=== PATIENT | male | born 1985 | race Caucasian/White ===

== ENCOUNTER → 2021-11-26 13:14 | Outpatient (BNVA) | payer MEDICARE, SELFPAY | PROVIDERS: PCP Nurse Practitioner Family | DX: M79.674 Pain in right toe(s) (principal) | CPT/HCPCS: 73660 ==

== ENCOUNTER 2022-03-07 11:20 | Inpatient (IN) | payer MEDICARE, SELFPAY ==
[2022-03-07 11:38] VITALS: BP 138/81; PULSE 64; RESP 18; TEMP 36.7; O2SAT 96; BMI 29.5
--- NOTE | 2022-03-07 12:02 | W.ED.PSYCHS ---
HPI - Psych General: Chief Complaint: Psychiatric Symptoms Stated Complaint: MHE Time Seen by Provider: 03/07/22 11:34 PFSH ED PFSH: Medical History (Updated 03/03/22 @ 10:03 by Daly Hernández) Psychiatric care Social History Smoking and tobacco status: never smoked Course Vital Signs: Vital signs: Vital Signs Temperature 98.1 F 03/07/22 11:38 Pulse Rate 64 03/07/22 11:38 Respiratory Rate 18 03/07/22 11:38 Blood Pressure 138/81 03/07/22 11:38 Pulse Oximetry 96 03/07/22 11:38 Discharge Plan Discharge Condition: Stable Prescriptions: No Action ibuprofen 800 mg tablet 800 mg PO TID PRN (Reason: pain) 10 Days Qty: 30 0RF Coding Level of Care Code ED Hot Top Liner Helper for Jessica Armenta
--- NOTE | 2022-03-07 12:04 | W.ED.GENADLT ---
HPI - General Adult General: Chief complaint: Psychiatric Symptoms Stated complaint: MHE Time Seen by Provider: 03/07/22 11:34 History of Present Illness: HPI: [36]yo patient w/ hx of depression presenting to the emergency room for depression and suicidal ideation. Patient tells me that the suicidal ideation has gotten worse. Most recently, patient was involved in argument with his and now reports that he is feeling more depressed. On arrival, the patient is AAOx3 and cooperative with my evaluation. No focal complaints of chest pain, shortness of breath, palpitations, N/V, focal GI/ complaints. Currently denies HI. No complaints of hallucinations. Onset: acute on chronic Duration: ongoing Location: home Severity: severe Associated symptoms: Deny chest pain, dyspnea, nausea, rash, palpitations or vomiting Review of Systems Const: Denies: fever(s) or chills Eyes: Denies: change in vision ENMT: Denies: mouth pain Card: Denies: chest pain or palpitations Resp: Denies: dyspnea or non-productive cough GI: Denies: abdominal pain, nausea, vomiting or diarrhea : Denies: dysuria Musc: Denies: extremity pain Skin/Breast: Denies: rash or new lesions Neuro: Denies: weakness in extremities Psych: Reports: depression and suicidal ideation Santi/Lymph: Denies: easy bruising PFSH ED PFSH: Medical History Depression with suicidal ideation Psychiatric care Social History Smoking and tobacco status: never smoked Alcohol intake: never Physical Exam Const: COMMON NORMALS: alert HENMT: COMMON NORMALS: atraumatic HEAD & SCALP: atraumatic MOUTH: moist mucous membranes not abnormal Eye: COMMON NORMALS: EOMs intact bilaterally and conjunctivae normal CONJUNCTIVA: Yes conjunctivae normal Neck/C-Spine: COMMON NORMALS: full ROM and supple Resp: COMMON NORMALS: normal respiratory effort and clear to auscultation bilaterally AUSCULTATION: clear to auscultation bilaterally Cardio: COMMON NORMALS: regular rate RATE: regular rate GI: COMMON NORMALS: Soft to palpation and non-tender PALPATION: Yes Soft to palpation Extremity: COMMON NORMALS: full ROM Neuro: SENSORIUM/ORIENTATION: Yes alert MOTOR EXAM: No Abnormal motor strength present and Other motor observations present (no focal motor deficits) Psych: COMMON NORMALS: speech normal SPEECH: Yes normal speech MOOD & AFFECT: Yes depressed mood Course Vital Signs: Vital signs: Vital Signs Temperature 98.1 F 03/10/22 11:20 Pulse Rate 53 L 03/10/22 11:20 Respiratory Rate 18 03/10/22 11:20 Blood Pressure 107/65 03/10/22 11:20 Pulse Oximetry 96 03/10/22 11:20 MDM - General Adult Medical Decision Making [36]yo patient w/ hx of depression presenting for worsening depression with SI. HDS, exam within normal limit Thoughts are linear and organized, and the patient has no AH/VH, or HI. Clinically the patient displays no overt toxidrome; they are well appearing, with low suspicion for toxic ingestion given history and exam. Symptoms unlikely 2/2 anemia, hypothyroidism, infection, or ICH. Workup: CBC, CMP, Lipase, salicylate/tylenol, serum ethanol level, UDS Lab findings: wnl [1:30pm] On reassessment, labs and workup wnl. Patient is hemodynamically stable with no acute medical complaints. Case discussed with psychiatric provider Dr. Yanes at [facility] psych inpatient with recommendation for admission Disposition: Psych Lab Data : 03/07/22 13:28 03/07/22 13:28 Discharge Plan Discharge Patient Disposition: Admitted As Inpatient Admit Provider: Michael Yanes Clinical Impression: Depression with suicidal ideation Condition: Stable Discharge Diet: Regular Discharge Activity: Resume usual activity Coding Level of Care Code ED Priming Powder Premix Blender for Chg Fwd Exam Comprehensive
[2022-03-07 13:11] VITALS: BP 135/83; PULSE 60; RESP 16; O2SAT 96
[2022-03-07 13:30] VITALS: BP 115/79; PULSE 96; O2SAT 97
[2022-03-07 14:16] LABS: Basophils % 0.6 %; Eosinophils # 0.1 10^3/uL (0.0-0.8); Hematocrit 48.5 % (42.0-52.0); Hemoglobin 16.1 g/dL (11.7-16.6); Lymphocytes # 1.6 10^3/uL (0.8-4.8); Lymphocytes % 31.7 %; Mean Corpuscular HGB Conc 33.2 g/dL (30.0-36.0); Mean Corpuscular Hemoglobin 31.3 pg (28.0-34.0); Mean Corpuscular Volume 94.2 fl (80-94); Monocytes # 0.3 10^3/uL (0.2-0.9); Monocytes % 5.9 %; Neutrophils # 3.04 10^3/uL (1.8-7.7); Neutrophils % 59.4 %; Nucleated Red Blood Cells % 0 %; Platelet Count 240 10^3/cmm (130-400); Red Blood Count 5.15 10^6/uL (4.1-5.3); Red Cell Distribution Width 12.8 % (12.1-15.1); White Blood Count 5.1 10^3/uL (4.0-10.0)
[2022-03-07 14:49] LABS: Alanine Aminotransferase 16 U/L (0-41); Albumin Level 4.5 g/dL (3.5-5.2); Alkaline Phosphatase 87 IU/L (40-130); Anion Gap 13.2 (5-19); Aspartate Amino Transferase 12 U/L (0-40); Blood Urea Nitrogen 12 mg/dL (6-20); Calcium 9.3 mg/dL (8.5-10.5); Carbon Dioxide 26 mmol/L (22-29); Chloride 100 mmol/L (98-107); Globulin 2.6 g/dL (1.3-4.6); Glomerular Filtration Rate 63.2 mL/min (90-130); Glucose 92 mg/dL (65-115); Lipase 52 U/L (13-60); Osmolality Calculated 279 mOsm/kg (285-295); Potassium 4.2 mmol/L (3.5-5.1); Sodium 135 mmol/L (136-145); Total Bilirubin 0.6 mg/dL (0.15-1.2); Total Protein 7.1 g/dL (6.6-8.7)
[2022-03-07 14:51] LABS: Acetaminophen < 5.0 ug/mL (10-30); Alcohol Level < 10 mg/dL (0-10); Salicylate < 0.3 mg/dL (3-10)
--- NOTE | 2022-03-07 15:15 | PC.NURSE ---
Report called to VANESSA Bender
[2022-03-07 17:31] VITALS: BP 137/85; PULSE 85; RESP 20; TEMP 36.9; O2SAT 97
[2022-03-07 17:35] LABS: Amphetamines Screen Urine Negative (Negative); Barbiturates Screen Urine Negative (Negative); Benzodiazepines Screen Urine Negative (Negative); Cocaine Screen Urine Negative (Negative); Opiate Screen Urine Negative (Negative); PCP Screen Urine Negative (Negative); THC Screen Urine Negative (Negative)
[2022-03-07] MEDS: acetaminophen 325 mg Tablet 650 MG PO (19:58)
[2022-03-07 20:08] VITALS: BP 121/81; PULSE 66; RESP 15; TEMP 36.8; O2SAT 96
[2022-03-07] MEDS: trazodone 50 mg Tablet PO (21:01)
[2022-03-08 06:00] VITALS: BP 89/60; PULSE 78; RESP 14; TEMP 36.7; O2SAT 94
[2022-03-08] MEDS: acetaminophen 325 mg Tablet 650 MG PO (09:58)
--- NOTE | 2022-03-08 11:40 | P.NPUHP_ITS ---
Providers/Chief Complaint Admitting Physician: Michael Yanes MD Chief Complaint: MHE HPI NPU History of Present Illness Alfred Burger is a 36 year old male recently evaluated schizoaffective disorder bipolar type who arrived here requesting an adjustment in his medications as he had complained of worsening depression and increased suicidal ideation. Alfred reports a history of periods of depressed mood with low energy low motivation hypersomnia followed by other periods of time and life where manic with decr eased need for sleep, racing thoughts, increased euphoria, high energy, rapid speech and uncharacteristic exuberance and increased spending. He reports since his diagnosis initially at 23, he cycles between episodes of caitlyn and major depression with very little periods of time where he is euthymic. He reports throughout his lifetime of illness, he is chronically suicidal, and has active psychotic symptoms that are present including intense paranoia including signficant ideas of reference, feelings that everyone is trying to harm him. Medical Hx: none Surgical Hx: none Allergies: nkda. Past Psychiatric History: inpatient treatment 3x in [place] beginning at age of 23, including suicide attempts where he had attempted to hang himself. Outpatient tx: Donita Hallman, in [facility] for the past 10 years. Reports multiple medication trials including Abilify, Seroquel, Risperidone, invega, geodon, latuda, depakote, zyprexa, and Lamotrigine Current medications: Wellbutrin Sr 150mg in am, rexulti 4mg daily. Drugs/ETOH: none reported Legal History: none Social History: x1, for 4 years, moved from [place] 4 months ago, lives in [facility] with and stepdaughter, works for [employer], no children, raised in [place], by biological mother, has 2 siblings, graduated High school, no college, reports learning disabilities as child and was on an IEP. Reports delay in developmental milestones. No history of sexual or physical or emotional trauma, reports being on disability for mental health. Family psychiatric hx: maternal uncle with schizophrenia. Meds NPU Home Medications Medication Instructions Recorded Confirmed Last Taken Type ibuprofen 800 mg tablet 800 mg PO TID PRN 10 Days #30 tab 11/26/21 03/07/22 Unknown Rx brexpiprazole 4 mg tablet (Rexulti) 4 mg PO BEDTIME 03/07/22 03/07/2222 History bupropion HCl 150 mg tablet,12 hr 150 mg PO DAILY 03/07/22 03/07/22 Unknown History sustained-release (Wellbutrin SR) Allergies Allergy/AdvReac Type Severity Reaction Status Date / Time No Known Allergies Allergy Verified 03/07/22 12:04 PFSH NPU PFSH: Medical History Depression with suicidal ideation Psychiatric care Social History Smoking and tobacco status: never smoked Alcohol intake: never Substance/Drug Use: never Mental Status Exam MSE Comments: well groomed, healthy strong male, appeared his stated age, with ornate tattoos on his body, cooperative on interview, good historian, no tics no stereotypies, noted, no abnormal involuntary motor movements appreciated. Speech: normal, Mood: depressed Affect :mood congruent and restricted, Thought content: suicidal ideation with no active plan, no homicidal ideation, no evidence of active paranoid process noted at this time although he reported some overvalued ideas. thought process appeared linear and logical and goal directed. Insight: fair, Judgment: guarded, Impulse control: guarded Vitals/I&O/Wt Last Vital Signs Temp 98.3 F 03/08/22 14:00 Pulse 62 03/08/22 14:00 Resp 18 03/08/22 14:00 BP 106/68 03/08/22 14:00 Pulse Ox 94 03/08/22 14:00 Weight last 48 hrs Weight 104.326 kg Data NPU : 03/07/22 13:28 03/07/22 13:28 A&P Assessment and plan (1) Schizoaffective disorder, bipolar type: Status: Acute Plan TO-15 minute checks engage individual, group and milieu therapy will gather medical records, restart wellbutrin xl and rexulti as prescribed Discussed options for another mood stabilizer and will start lithium 300mg bid, risks benefits of medication discussed. Involuntary Hold Information 96 Hour Hold: 96 Hour Involuntary Admission: No Attestations NPU Medical Necessity Statement*: Patient will require initial psychiatric hospi talization including at least 2 midnights with expected length of stay 3-5 days. Coding Level of Care Code Established Pt Acute Employment Services Director for Juveg Fwd Patient Type Established History Problem Focused Exam Problem Focused Medical Decision Making Straight Forward Diagnoses Schizoaffective disorder, bipolar type F25.0
[2022-03-08] MEDS: buPROPion XL (24 HR) 150 mg Tablet PO (12:25)
[2022-03-08 14:00] VITALS: BP 106/68; PULSE 62; RESP 18; TEMP 36.8; O2SAT 94
[2022-03-08] MEDS: lithium carbonate 300 mg Capsule PO (20:21)
[2022-03-08 22:00] VITALS: BP 112/66; PULSE 67; RESP 18; O2SAT 93
[2022-03-09 06:00] VITALS: BP 98/62; PULSE 74; RESP 16; TEMP 36.7; O2SAT 98
[2022-03-09] MEDS: lithium carbonate 300 mg Capsule PO ×2 (09:30→20:04)
[2022-03-09] MEDS: buPROPion XL (24 HR) 150 mg Tablet PO (09:30)
--- NOTE | 2022-03-09 12:24 | P.NPUPN_ITS ---
Subjective NPU Subjective: 36 year old white male with history of schizoaffective disorder bipolar type admitted to NPU with depressed mood, paranoia and suicidal ideation. Patient remains on wellbutrin xl 150mg in am, rexulti 4mg daily and was started on [place] 300mg bid. Patient had reported feeling dizzy and nauseous last night after the first dose but reports desire to continue the medication. He reports no difference in mood yet but reports some improved hopefullness. Patient reports sleep continuity disruption, and reports continued desire to isolate self in general when he was depressed. He still reports suicidal thoughts without a plan. Mental Status Exam MSE Comments: well groomed, healthy strong male, appeared his stated age, with ornate tattoos on his body, cooperative on interview, good historian, no tics no stereotypies, noted, no abnormal involuntary motor movements appreciated.? Speec h: normal, Mood: depressed Affect :mood congruent and restricted, Thought content: suicidal ideation with no active plan, no homicidal ideation, thought process: some evidence of paranoid process today. Insight: fair, Judgment: guarded, Impulse control: guarded Vitals/I&O/Wt Last Vital Signs Temp 98.2 F 03/09/22 20:47 Pulse 64 03/09/22 20:47 Resp 18 03/09/22 20:47 BP 128/76 03/09/22 20:47 Pulse Ox 96 03/09/22 20:47 Weight last 48 hrs Weight 103.873 kg Data NPU : 03/07/22 13:28 03/07/22 13:28 A&P Assessment and plan (1) Schizoaffective disorder, bipolar type: Status: Acute Plan TO-15 minute checks engage individual, group and milieu therapy will gather medical records, continue rexulti 4mg daily, wellbutrin xl 150mg in am Continue [place] 300mg bid, with lithium level in 5 days along with CMP, urinalysis, TSH, Involuntary Hold Information 96 Hour Hold: 96 Hour Involuntary Admission: No Attestations NPU Medical Necessity Statement*: Patient will continue to require inpatient hospitalization with continued expected length of stay 4-6 days.? Coding Level of Care Code Established Pt Acute Fisher Oyster for Juveg Fwd Patient Type Established History Problem Focused Exam Problem Focused Medical Decision Making Straight Forward Diagnoses Schizoaffective disorder, bipolar type F25.0
[2022-03-09 14:00] VITALS: BP 114/72; PULSE 53; RESP 16; TEMP 36.6; O2SAT 95
[2022-03-09 20:47] VITALS: BP 128/76; PULSE 64; RESP 18; TEMP 36.8; O2SAT 96
--- NOTE | 2022-03-09 20:58 | PC.NURSE ---
2044 requested and received Vistaril 50mg po for anxiety per PRN order
[2022-03-10 06:00] VITALS: BP 107/65; PULSE 53; RESP 18; TEMP 36.7; O2SAT 96
[2022-03-10] MEDS: buPROPion XL (24 HR) 150 mg Tablet PO (08:17)
[2022-03-10] MEDS: lithium carbonate 300 mg Capsule PO (08:17)
[2022-03-10 10:46] VITALS: BP 107/65; PULSE 53; RESP 18; TEMP 36.7; O2SAT 96
--- NOTE | 2022-03-10 11:04 | P.NPUDS_ITS ---
Diagnoses at Discharge Discharge Diagnosis (1) Schizoaffective disorder, bipolar type: Status: Acute Reason for Visit Reason for Visit: MHE Brief History: History of Present Illness Alfred Burger is a 36 year old male recently evaluated schizoaffective disorder bipolar type who arrived here requesting an adjustment in his medications as he had complained of worsening depression and increased suicidal ideation.? Alfred reports a history of periods of depressed mood with low energy low motivation hypersomnia followed by other periods of time and life where manic with decreased need for sleep, racing thoughts, increased euphoria, high energy, rapid speech and uncharacteristic exuberance and increased spending.? He reports since his diagnosis initially at 23, he cycles between episodes of caitlyn and major depression with very little periods of time where he is euthymic.? He reports throughout his lifetime of illness, he is chronically suicidal, and has active psychotic symptoms that are present including intense paranoia including signficant ideas of reference, feelings that everyone is trying to harm him.? Medical Hx: none Surgical Hx: none Allergies: nkda. Past Psychiatric History: inpatient treatment 3x in [place] beginning at age of 23, including suicide attempts where he had attempted to hang himself.? Outpatient tx: Donita Hallman, in [facility] for the past 10 years.? Reports multiple medication trials including Abilify, Seroquel, Risperidone, invega, geodon, latuda, depakote, zyprexa, and Lamotrigine Current medications: Wellbutrin Sr 150mg in am, rexulti 4mg daily.? Drugs/ETOH: none reported Legal History: none Social History: x1, for 4 years, moved from [place] 4 months ago, lives in [facility] with and stepdaughter, works for [email or web address], no children, raised in [place], by biological mother, has 2 siblings, graduated High school, no college, reports learning disabilities as child and was on an IEP. Reports delay in developmental milestones.? No history of sexual or physical or emotional trauma, reports being on disability for mental health. Family psychiatric hx: maternal uncle with schizophrenia. Hospital Course Hospital Course He slowly acclimated to the individual, group and milieu therapy provided. Rexulti 4 mg daily was continued, Wellbutrin 150 mg SR was changed to Wellbutrin XL 150 mg daily and lithium relatively as well as trazodone 50 mg was initiated with positive response. He was able to contract for safety outside of the hosp ital prior. Exam treatment team for appropriate discharge plan. During the hospitalization, patient had routine laboratory studies which were within normal limits except for few outliers. Additionally there was a general medical evaluation which was also within normal limits and revealed no new acute processes. Discharge Summary: At the time of discharge, lethality was denied and psychosis was resolving. Mood and anxiety were well managed. Patient endorsed a plan to avoid all drugs of abuse and follow-up with the aftercare recommendations of the treatment team. Patient was evaluated and deemed to be absent credible lethality, and was a voluntary patient with no indicators for a 96-hour hold and was no longer interested in inpatient hospitalization, so he was discharged. Involuntary Hold Information 96 Hour Hold: 96 Hour Involuntary Admission: No Mental Status Exam MSE Comments: This is an overweight versus obese white male in hospital scrubs with adequate grooming and eye contact. No abnormal movements. Cooperative with exam in no acute distress. Speech was normal rate and volume. Mood described as much better, affect euthymic. Thought process organized. Thought content: Patient denied suicidal or homicidal ideation, no delusions reported or noted, denied any auditory visual hallucinations. Attention concentration were intact and memory appeared reliable but none formally tested. He is alert and oriented x3. Insight and judgment appear fair, impulse control limited. Discharge Data Studies Completed and Pending: Laboratory Results WBC 5.1 10^3/uL (4.0- 10.0) 03/07/22 13:28 RBC 5.15 10^6/uL (4.1 -5.3) 03/07/22 13:28 Hgb 16.1 g/dL (11.7-1 6.6) 03/07/22 13:28 Hct 48.5 % (42.0-52.0 ) 03/07/22 13:28 MCV 94.2 fl (80-94) H 03/07/22 13:28 MCH 31.3 pg (28.0-34. 0) 03/07/22 13:28 MCHC 33.2 g/dL (30.0-3 6.0) 03/07/22 13:28 RDW 12.8 % (12.1-15.1 ) 03/07/22 13:28 Plt Count 240 10^3/cmm (130 -400) 03/07/22 13:28 MPV 9.0 fL (7.4-10.4) 03/07/22 13:28 Neut % (Auto) 59.4 % 03/07/22 13:28 Lymph % (Auto) 31.7 % 03/07/22 13:28 [place] % (Auto) 5.9 % 03/07/22 13:28 Eos % (Auto) 2.0 % 03/07/22 13:28 Baso % (Auto) 0.6 % 03/07/22 13:28 Neut # (Auto) 3.04 10^3/uL (1.8 -7.7) 03/07/22 13:28 Lymph # (Auto) 1.6 10^3/uL (0.8- 4.8) 03/07/22 13:28 [place] # (Auto) 0.3 10^3/uL (0.2- 0.9) 03/07/22 13:28 Eos # (Auto) 0.1 10^3/uL (0.0- 0.8) 03/07/22 13:28 Baso # (Auto) 0.0 10^3/uL (0.0- 0.1) 03/07/22 13:28 Nucleated RBC % (a uto) 0 % 03/07/22 13:28 Nucleated RBCs # 0.0 /100WBC 03/07/22 13:28 Sodium 135 mmol/L (136-1 45) L 03/07/22 13:28 Potassium 4.2 mmol/L (3.5-5 .1) 03/07/22 13:28 Chloride 100 mmol/L (98-10 7) 03/07/22 13:28 Carbon Dioxide 26 mmol/L (22-29) 03/07/22 13:28 Anion Gap 13.2 (5-19) 03/07/22 13:28 BUN 12 mg/dL (6-20) 03/07/22 13:28 Creatinine 1.3 mg/dL (0.7-1. 2) H 03/07/22 13:28 GFR Calculation 63.2 mL/min (90-1 30) L 03/07/22 13:28 Glucose 92 mg/dL (65-115) 03/07/22 13:28 Calculated Osmolal ity 279 mOsm/kg (285- 295) L 03/07/22 13:28 Calcium 9.3 mg/dL (8.5-10 .5) 03/07/22 13:28 Total Bilirubin 0.6 mg/dL (0.15-1 .2) 03/07/22 13:28 AST 12 U/L (0-40) 03/07/22 13:28 ALT 16 U/L (0-41) 03/07/22 13:28 Alkaline Phosphata se 87 IU/L (40-130) 03/07/22 13:28 Total Protein 7.1 g/dL (6.6-8.7 ) 03/07/22 13:28 Albumin 4.5 g/dL (3.5-5.2 ) 03/07/22 13:28 Globulin 2.6 g/dL (1.3-4.6 ) 03/07/22 13:28 Lipase 52 U/L (13-60) 03/07/22 13:28 Salicylates < 0.3 mg/dL (3-10 ) L 03/07/22 13:28 Urine Opiates Scre en Negative ng/mL (N egative) 03/07/22 14:25 Acetaminophen < 5.0 ug/mL (10-3 0) L 03/07/22 13:28 Ur Barbiturates Sc reen Negative ng/mL (N egative) 03/07/22 14:25 Ur Phencyclidine S crn Negative ng/mL (N egative) 03/07/22 14:25 Ur Amphetamines Sc reen Negative ng/mL (N egative) 03/07/22 14:25 U Benzodiazepines Scrn Negative ng/mL (N egative) 03/07/22 14:25 Urine Cocaine Scre en Negative ng/mL (N egative) 03/07/22 14:25 U Marijuana (THC) Screen Negative ng/mL (N egative) 03/07/22 14:25 Ethyl Alcohol < 10 mg/dL (0-10) 03/07/22 13:28 Vitals: Last Vital Signs Temp 98.1 F 03/10/22 10:46 Pulse 53 L 03/10/22 10:46 Resp 18 03/10/22 10:46 BP 107/65 03/10/22 10:46 Pulse Ox 96 03/10/22 10:46 Discharge Plan Discharge Patient Disposition: Home Condition: Stable Prescriptions: New bupropion HCl 150 mg Tablet Extended Release 24 Hr 150 mg PO DAILY 30 Days Qty: 30 1RF trazodone 50 mg Tablet 50 mg PO BEDTIME PRN (Reason: Sleep) 30 Days Qty: 30 1RF lithium carbonate 300 mg Capsule 300 mg PO 0900,2100 30 Days Qty: 60 1RF Continued ibuprofen 800 mg tablet 800 mg PO TID PRN (Reason: pain) 10 Days Qty: 30 0RF Rexulti 4 mg tablet 4 mg PO BEDTIME 30 Days Qty: 30 1RF Discontinued bupropion HCl [Wellbutrin SR] 150 mg Tablet Sustained-Release 12 Hr 150 mg PO DAILY 0RF Discharge Orders: Discharge Order (Routine); Ordered 03/10/22 Ordered By: Andrew Torres Referrals: Flor Martinez-Therapist [Other] Lorene Morrison PMHNP [Staff Physician] - 03/13/22 9:30 am (Check-in) Discharge Diet: Regular Discharge Activity: Resume usual activity Patient Instructions: Bupropion (By mouth), Trazodone (By mouth), [place] (By mouth), Depression (DC), Schizoaffective Disorder (DC), Suicide Prevention (DC), Opioid Safety Discharge Attestations NPU Time Spent in Discharge Care*: less than 30 min Specific Discharge Activities: Specific discharge activities: educating patient, discussing with community case manager/social workers/dc planners, documenting/other paperwork and evaluating patient/reviewing data Coding Level of Care Code Acute Chg FW DC note Diagnoses Schizoaffective disorder, bipolar type F25.0
[2022-03-10 11:20] VITALS: BP 107/65; PULSE 53; RESP 18; TEMP 36.7; O2SAT 96
--- NOTE | 2022-03-10 11:40 | DCPLANNER ---
IMM completed on 03/10/22 @ 0534. Pt was given a copy of rights and pt stated he understands his rights.
--- NOTE | 2022-03-10 12:19 | PC.NURSE ---
Discharge Pt educated on discharge information, including meds, follow up appointment, and MOCARS number. Pt verbalized understanding. Pt was discharged with all belongings at 1220 with . All questions answered and support voiced.
== END 2022-03-10 12:20 | disposition home or self-care (01) | DRG 885 ==
LOC: ER 12:34 → NP 14:06
PROVIDERS: Admitting Provider Psychiatry & Neurology Psychiatry; Emergency Provider Emergency Medicine; Visit Provider Psychiatry & Neurology Psychiatry
DX: F25.0 Schizoaffective disorder, bipolar type (principal); R45.851 Suicidal ideations; Z63.0 Problems in relationship with spouse or partner; Z81.8 Family history of other mental and behavioral disorders
CPT/HCPCS: 36415; 80053; 80306; 80307; 83690; 85025; 97150; 97165; 99285

== ENCOUNTER → 2022-04-03 11:30 | Outpatient (BNVA) | payer MEDICARE, SELFPAY | PROVIDERS: Visit Provider Nurse Practitioner Family | DX: R06.2 Wheezing (principal); L29.9 Pruritus, unspecified; R53.83 Other fatigue; L85.3 Xerosis cutis; M79.10 Myalgia, unspecified site; M25.50 Pain in unspecified joint; Z00.00 Encounter for general adult medical examination without abnormal findings; F25.0 Schizoaffective disorder, bipolar type; Z13.6 Encounter for screening for cardiovascular disorders; Z13.220 Encounter for screening for lipoid disorders | CPT/HCPCS: 71046; 80053; 80061; 82306; 84443; 85651; 86140 ==

== ENCOUNTER → 2022-06-13 11:03 | Outpatient (BNVA) | payer MEDICARE, SELFPAY | PROVIDERS: PCP Nurse Practitioner Family; Visit Provider Surgery | DX: R19.7 Diarrhea, unspecified (principal); R14.0 Abdominal distension (gaseous); Z80.0 Family history of malignant neoplasm of digestive organs | CPT/HCPCS: 99203 ==

== ENCOUNTER → 2022-08-13 16:35 | Outpatient (BNVA) | payer MEDICARE, SELFPAY | PROVIDERS: PCP Nurse Practitioner Family; Visit Provider Nurse Practitioner Family | DX: J06.9 Acute upper respiratory infection, unspecified (principal); J40 Bronchitis, not specified as acute or chronic; R05.9 Cough, unspecified | CPT/HCPCS: 71046 ==

== ENCOUNTER → 2022-08-14 13:13 | Outpatient (BNVA) | payer MEDICARE, SELFPAY | PROVIDERS: PCP Nurse Practitioner Family; Visit Provider Nurse Practitioner Family | DX: J02.9 Acute pharyngitis, unspecified (principal); R05.9 Cough, unspecified; J40 Bronchitis, not specified as acute or chronic; J02.8 Acute pharyngitis due to other specified organisms; J06.9 Acute upper respiratory infection, unspecified; B96.89 Other specified bacterial agents as the cause of diseases classified elsewhere | CPT/HCPCS: 80053; 85025 ==

== ENCOUNTER → 2022-09-25 12:06 | Outpatient (BNVA) | payer MEDICARE, SELFPAY | PROVIDERS: PCP Nurse Practitioner Family; Visit Provider Internal Medicine | DX: R00.1 Bradycardia, unspecified (principal); R42 Dizziness and giddiness; R00.2 Palpitations; R07.9 Chest pain, unspecified; R06.02 Shortness of breath; R55 Syncope and collapse | CPT/HCPCS: 99204 ==

== ENCOUNTER 2022-10-22 07:29 | Outpatient (CLI) | payer MEDICARE, SELFPAY ==
--- NOTE | 2022-10-22 07:15 | USCV_ITS ---
Alfred Burger Age: 36 Gender: M : 1985 Exam Date: 10/22/2022 07:44 Ordering Phys: Dexter Freire M.D ([email or web address]) Technologist: Valentin Cheng [place] [facility] [place]: shortness of breath BP: 100 / 70 HR: 50 Rhythm: Sinus Technical Quality: Adequate MEASUREMENTS (Male / Female) Normal Values 2D ECHO LV Diastolic Diameter PLAX 5.3 cm 4.2 - 5.9 / 3.9 - 5.3 cm LV Systolic Diameter PLAX 3.3 cm IVS Diastolic Thickness 0.7 cm 0.6 - 1.0 / 0.6 - 0.9 cm IVS Systolic Thickness 1.1 cm LVPW Diastolic Thickness 0.8 cm 0.6 - 1.0 / 0.6 - 0.9 cm LVPW Systolic Thickness 1.5 cm LVOT Diameter 2.0 cm LV Ejection Fraction 2D Teich 67.5 % LV Ejection Fraction MOD 2C 67.5 % LV Ejection Fraction 2C AL 66.6 % LA Diameter 3.6 cm LA Width 3.2 cm LA Height 5.1 cm RA Width 3.4 cm RA Height 4.6 cm Aorta at Sinotubular Diameter 2.4 cm IVC Diameter 1.5 cm M-MODE Aortic Annulus Diameter 3.0 cm LA Ao Ratio MM 1.2 MV E Point Septal Separation 0.7 cm DOPPLER AV Peak Velocity 156.0 cm/s LVOT Peak Velocity 117.0 cm/s AV Area Cont Eq vti 2.6 cm squared AV Area Cont Eq pk 2.4 cm squared MV Peak Velocity 114.0 cm/s MV Area PHT 4.0 cm squared Mitral E to A Ratio 1.2 MV E' Velocity 43.0 cm/s Mitral E to MV E' Ratio 5.6 Mitral E to LV E' Lateral Ratio 4.7 Mitral E to LV E' Septal Ratio 6.9 TR Peak Velocity 286.3 cm/s TR Peak Gradient 32.8 mmHg TR Mean Velocity 229.5 cm/s TR Mean Gradient 21.8 mmHg TR Velocity Time Integral 88.1 cm Right Atrial Pressure 3.0 mmHg Pulmonary Artery Systolic Pressu 35.8 mmHg PV Peak Velocity 119.0 cm/s RV Acceleration Time 0.1 s RV Ejection Time 0.3 s RV AcT/ET 0.5 FINDINGS Left Ventricle Normal left ventricular size and systolic function, EF 65 %. No regional wall motion abnormalities. Right Ventricle The right ventricle is normal in size and function. Right Atrium The right atrium is normal in size. Left Atrium The left atrium is normal in size. Mitral Valve No gross abnormalities noted Aortic Valve No gross abnormalities noted Tricuspid Valve Trace tricuspid valve regurgitation. Pulmonic Valve No gross abnormalities noted Pericardium No pericardial effusion. Aorta Normal aortic annulus size. IVC The inferior vena cava appears normal. CONCLUSIONS Normal left ventricular size and systolic function, EF 65 %. No regional wall motion abnormalities. Normal cardiac chamber sizes No significant stenotic or regurgitant lesions Trace tricuspid valve regurgitation. Estimated pulmonary artery peak systolic pressure 36 mmHg There is no pericardial effusion. There are no intracardiac masses. No similar previous studies are available for comparison Dr Meghana Conti MD [facility] (Electronically Signed) Final Date: 25 October 2022 19:04 S
== END 2022-10-22 07:30 | disposition home or self-care (01) ==
LOC: RAD 07:34
PROVIDERS: PCP Nurse Practitioner Family; Visit Provider Internal Medicine
DX: R06.02 Shortness of breath (principal); I07.1 Rheumatic tricuspid insufficiency
CPT/HCPCS: 93306

== ENCOUNTER → 2023-03-02 16:38 | Outpatient (BNVA) | payer MEDICARE, SELFPAY | PROVIDERS: PCP Nurse Practitioner Family; Visit Provider Nurse Practitioner Family | DX: K58.9 Irritable bowel syndrome, unspecified (principal) | CPT/HCPCS: 80053 ==

== ENCOUNTER 2023-03-09 10:36 | Emergency (ER) | payer MEDICARE, SELFPAY ==
--- NOTE | 2023-03-09 10:46 | W.ED.PSYCHS ---
Documented by User: CHEO Ruiz 03/09/23 14:31 HPI - Psych General: Chief Complaint: Psychiatric Symptoms Stated Complaint: MHE Time Seen by Provider: 03/09/23 10:43 History of Present Illness: Patient is a 37-year-old male who comes to the ED for psych meds. Patient was seen by the psychologist today and they told him to come here to the ED so he can be seen by a psych doctor here in the ED to possibly adjust his medications. Patient says he has a history of depression. He denies any thoughts of SI or HI currently. Patient states he does not want to be admitted to the stress unit does not think he needs to be admitted to the stress unit. He just wanted to talk to a psychiatrist to see about changing some of his medications. Associated symptoms: Deny homicidal ideation or suicidal ideation Review of Systems Const: Denies: fever(s), chills or fatigue Eyes: Denies: change in vision or eye discomfort ENMT: Denies: throat pain, odynophagia, nasal discharge or nasal congestion Card: Denies: chest pain, palpitations, edema, swelling of feet/ankles, dyspnea on exertion or orthopnea Resp: Denies: dyspnea, productive cough or non-productive cough GI: Denies: abdominal pain, nausea, vomiting, diarrhea, constipation or hematochezia : Denies: flank pain, difficulty urinating, dysuria or hematuria Musc: Denies: neck pain, back pain or extremity swelling Skin/Breast: Denies: rash or new lesions Neuro: Denies: headache(s), numbness in extremities or weakness in extremities Psych: Denies: suicidal ideation or homicidal ideation [facility] ED PFSH: Medical History (Updated 03/09/23 @ 10:55 by CHEO Ruiz) Bipolar 2 disorder Depression with suicidal ideation Psychiatric care Family History Grandfather Heart attack Social History Smoking and tobacco status: never smoked Alcohol intake: never Substance/Drug Use: never Physical Exam Narrative: EXAM NARRATIVE: Patient appears healthy and does not appear intoxicated at all. Const: COMMON NORMALS: no acute distress, patient oriented x3, healthy appearing and alert Neuro: COMMON NORMALS: patient oriented x3 SENSORIUM/ORIENTATION: Yes alert Psych: APPEARANCE: Yes grossly normal THOUGHT CONTENT: No Suicidality present and No Homicidality present MDM - Psych Medical Decision Making Patient is a 37-year-old male who comes to the ED for psych meds. Patient was seen by the psychologist today and they told him to come here to the ED so he can be seen by a psych doctor here in the ED to possibly adjust his medications. Patient says he has a history of depression. He denies any thoughts of SI or HI currently. Patient states he does not want to be admitted to the stress unit does not think he needs to be admitted to the stress unit. He just wanted to talk to a psychiatrist to see about changing some of his medications. Patient appears nontoxic in no acute distress or pain. Patient said he is not suicidal or homicidal. I told him I would have to call the psychiatrist and he would come down here to the ED to consult with him about his medications. I was unable to perform a complete physical exam on patient. Patient became a little aggravated and anxious and says he does not want to wait for psych doctor and he did not want to be here in the ED. patient stated that this will do nothing for me, I need to leave. He said it was a mistake for him to come to the ED and says all we want to do his lock him up in the NPU. I stressed to the patient that is not our intention at all and will simply give the psychiatrist a call and have him come down here to the ED to see patient. Patient said he does not want to see a psych doctor here in the ED. patient appears in clear state of mind denies any SI or HI. There did not appear to be any reason to hold patient here in the ED against his will. He calm down and cooperated and signed AMA form and left. Discharge Plan Discharge Patient Disposition: Left Against Medical Advice Clinical Impression: Encounter for medication adjustment Condition: Stable Prescriptions: No Action risperidone [Risperdal] 1 mg tablet 1 mg PO BID Qty: 60 0RF Referrals: Georgia Ventura NP [Primary Care Provider] - Coding Level of Care Code ED Digital Marketing Specialist for Chg Fwd Documented by User: Carlin Shaver DO 03/09/23 16:03 HPI - Psych General: Chief Complaint: Psychiatric Symptoms Stated Complaint: MHE Time Seen by Provider: 03/09/23 10:43 [facility] ED PFSH: Medical History (Updated 03/09/23 @ 10:55 by CHEO Ruiz) Bipolar 2 disorder Depression with suicidal ideation Psychiatric care Family History Grandfather Heart attack Social History Smoking and tobacco status: never smoked Alcohol intake: never Substance/Drug Use: never MDM - Psych Medical Decision Making Patient is a 37-year-old male who comes to the ED for psych meds. Patient was seen by the psychologist today and they told him to come here to the ED so he can be seen by a psych doctor here in the ED to possibly adjust his medications. Patient says he has a history of depression. He denies any thoughts of SI or HI currently. Patient states he does not want to be admitted to the stress unit does not think he needs to be admitted to the stress unit. He just wanted to talk to a psychiatrist to see about changing some of his medications. Patient appears nontoxic in no acute distress or pain. Patient said he is not suicidal or homicidal. I told him I would have to call the psychiatrist and he would come down here to the ED to consult with him about his medications. I was unable to perform a complete physical exam on patient. Patient became a little aggravated and anxious and says he does not want to wait for psych doctor and he did not want to be here in the ED. patient stated that this will do nothing for me, I need to leave. He said it was a mistake for him to come to the ED and says all we want to do his lock him up in the NPU. I stressed to the patient that is not our intention at all and will simply give the psychiatrist a call and have him come down here to the ED to see patient. Patient said he does not want to see a psych doctor here in the ED. patient appears in clear state of mind denies any SI or HI. There did not appear to be any reason to hold patient here in the ED against his will. He calm down and cooperated and signed AMA form and left. Chart reviewed and patient discussed with midlevel. Agree with assessment and plan. Medical Records I reviewed the patient's medical records. Lab Data I reviewed the patient's lab results. Discharge Plan Discharge Patient Disposition: Left Against Medical Advice Clinical Impression: Encounter for medication adjustment Condition: Stable Prescriptions: No Action risperidone [Risperdal] 1 mg tablet 1 mg PO BID Qty: 60 0RF Referrals: Georgia Ventura NP [Primary Care Provider] - Coding Level of Care Code ED Digital Marketing Specialist for Jessica Armenta
== END 2023-03-09 10:51 | disposition left against medical advice (07) ==
PROVIDERS: Emergency Provider Physician Assistant; PCP Nurse Practitioner Family
DX: Z00.8 Encounter for other general examination (principal); F31.81 Bipolar II disorder; Z53.21 Procedure and treatment not carried out due to patient leaving prior to being seen by health care provider
CPT/HCPCS: 99283

== ENCOUNTER → 2023-06-29 14:56 | Outpatient (BNVA) | payer MEDICARE, SELFPAY | PROVIDERS: PCP Nurse Practitioner Family; Visit Provider Nurse Practitioner Family | DX: J40 Bronchitis, not specified as acute or chronic (principal) | CPT/HCPCS: 80053 ==

== ENCOUNTER → 2023-10-20 11:31 | Outpatient (BNVA) | payer MEDICARE, SELFPAY | PROVIDERS: PCP Nurse Practitioner Family; Visit Provider Nurse Practitioner Family | DX: R00.2 Palpitations (principal); R53.83 Other fatigue; R07.9 Chest pain, unspecified; R06.09 Other forms of dyspnea; R00.1 Bradycardia, unspecified | CPT/HCPCS: 80053; 80061; 84439; 84443; 84481; 85025 ==

== ENCOUNTER → 2023-10-26 15:04 | Outpatient (BNVA) | payer MEDICARE, SELFPAY | PROVIDERS: PCP Nurse Practitioner Family; Referring Provider Nurse Practitioner Family; Visit Provider Internal Medicine Pulmonary Disease | DX: M25.641 Stiffness of right hand, not elsewhere classified (principal); M25.642 Stiffness of left hand, not elsewhere classified; R06.09 Other forms of dyspnea | CPT/HCPCS: 36415; 71046; 82785; 85651; 86003; 86038; 86140; 86200; 86225; 86235; 86431; 99204 ==

== ENCOUNTER 2023-11-10 13:33 | Outpatient (CLI) | payer MEDICARE, SELFPAY ==
[2023-11-10 13:51] VITALS: PULSE 76; RESP 18; O2SAT 99
[2023-11-10] MEDS: albuterol 2.5 mg/3 mL Neb INHALATION (13:51)
[2023-11-10 13:55] VITALS: PULSE 77
== END 2023-11-10 13:34 | disposition home or self-care (01) ==
LOC: RT 13:33
PROVIDERS: PCP Nurse Practitioner Family; Visit Provider Internal Medicine Pulmonary Disease
DX: R06.02 Shortness of breath (principal)
CPT/HCPCS: 94060; 94726; 94729; J7613

== ENCOUNTER 2024-01-12 10:46 | Emergency (ER) | payer MEDICARE, SELFPAY ==
--- NOTE | 2024-01-12 10:58 | ED.C_ITS ---
HPI - Psych General: Chief Complaint: Psychiatric Symptoms Stated Complaint: MHE Time Seen by Provider: 01/12/24 10:48 Source: patient Mode of arrival: ambulatory Limitations: no limitations History of Present Illness: Patient is a 38-year-old male who presents to ED today stating he wants a psychologist evaluation . Patient states he went to [facility] and was told to come to the emergency department because this is the fastest way to get one . Patient refuses to indulge in any information of why he feels he needs this evaluation. Patient adamantly refuses hospitalization NPU stating he does not l [facility] . Patient states he wants to speak to a psychologist and then immediately go home. He states he was told if he speaks to a psychiatrist here in the emergency department he can then get faster services through [facility]. He refuses to answer the majority of my questioning. He does not admit to any active suicidal or homicidal ideations. He does not appear acutely psychotic. MD complaint: other (wants psychiatric evaluation) Treatments prior to arrival: none Review of Systems General: Reports: Other (refuses to answer questioning ) [facility] ED PFSH: Medical History Bipolar 2 disorder Depression with suicidal ideation Psychiatric care Family History Grandfather Heart attack Social History Smoking and tobacco/nicotine status: never used tobacco/nicotine Alcohol intake: never Substance/Drug Use: never Physical Exam Const: COMMON NORMALS: no acute distress, average body habitus, no limitations, alert and well nourished GENERAL APPEARANCE: cooperative Neuro: COMMON NORMALS: gait normal SENSORIUM/ORIENTATION: Yes alert Psych: COMMON NORMALS: Normal thought process present and speech normal ATTITUDE: Yes evasive ACTIVITY/MOTOR BEHAVIOR: Yes appropriate eye contact SPEECH: Yes normal speech MOOD & AFFECT: Yes euthymic mood THOUGHT PROCESS: Normal thought process present MDM - Psych Medical Decision Making Patient will not elaborate any details on why he feels like he needs a psychiatric evaluation. He has not made any suicidal or homicidal comments while here. He is not acutely psychotic. He refuses all lab work. He refuses to change into paper scrubs. He refuses admission to NPU. Ultimately he demands a psychiatrist immediately come to the emergency department to evaluate him so he can be discharged and go back to [facility] and if they cannot do this then he will leave. I told him I would be willing to consult with the psychiatrist but sometimes it can take time. At that point patient states he would like to just go home and eloped from the emergency department. Medical Records I reviewed the patient's medical records. No radiology studies performed this visit Discharge Plan Discharge Patient Disposition: Home Clinical Impression: Encounter for psychiatric assessment Condition: Stable Prescriptions: No Action ziprasidone HCl 20 mg capsule 20 mg PO BID Rx Instructions: give with food (meal/snack) Discharge Orders: Discharge ED (Routine); Ordered 01/12/24 Ordered By: Agustina Franco Referrals: Georgia Ventura NP [Primary Care Provider] - Coding Level of Care Code ED Power Sweeper Operator for Jessica Armenta
--- NOTE | 2024-01-12 11:05 | PC.NURSE ---
PATIENT SPOKE WITH CONG CHAUDHRY AND EXPRESSED THAT HE DID NOT WANT TO BE HERE. PATIENT LEFT AGAINST MEDICAL ADVICE AND WALKED OUT WHILE REFUSING TO SIGN PAPERWORK.
== END 2024-01-12 11:08 | disposition home or self-care (01) ==
PROVIDERS: Emergency Provider Physician Assistant; PCP Nurse Practitioner Family
DX: Z00.8 Encounter for other general examination (principal)
CPT/HCPCS: 99281

== ENCOUNTER → 2024-01-21 11:18 | Outpatient (BNVA) | payer MEDICARE, SELFPAY | PROVIDERS: PCP Nurse Practitioner Family; Visit Provider Internal Medicine | DX: R00.1 Bradycardia, unspecified (principal); R42 Dizziness and giddiness; R00.2 Palpitations; R07.9 Chest pain, unspecified; Z87.891 Personal history of nicotine dependence | CPT/HCPCS: 99214 ==

== ENCOUNTER → 2024-02-12 11:26 | Outpatient (BNVA) | payer MEDICARE, SELFPAY | PROVIDERS: PCP Nurse Practitioner Family; Visit Provider Nurse Practitioner Family | DX: Z00.00 Encounter for general adult medical examination without abnormal findings (principal); R53.83 Other fatigue; R07.9 Chest pain, unspecified; F25.0 Schizoaffective disorder, bipolar type; R00.2 Palpitations | CPT/HCPCS: 80053; 80061; 84443; 85025 ==

== ENCOUNTER 2024-07-18 10:10 | Inpatient (IN) | payer MEDICARE, SELFPAY ==
--- NOTE | 2024-07-18 10:17 | ED.C_ITS ---
HPI - Psych 2 General: Chief Complaint: Psychiatric Symptoms Stated Complaint: mhe Time Seen by Provider: 07/18/24 10:14 History of Present Illness: 38-year-old male presents emergency room via EMS accompanied by law enforcement. Patient was at back ambulatory crisis intervention at [facility] he made some comments suggesting suicidal ideation became upset and left [facility]. They filled out 96-hour paperwork based on his suicidal ideations. When patient arrives here he is very angry and is demanding that he be allowed to leave because he sits he was only upset he really was not suicidal. He makes remark that he chronically has suicidal thoughts. Related Data Home Medications Medication Instructions Recorded Confirmed hydroxyzine pamoate 25 mg capsule 25 mg PO BEDTIME PRN itching 07/18/24 07/18/24 oxcarbazepine 300 mg tablet 300 mg PO BID 07/18/24 07/18/24 Previous Rx's Medication Instructions Recorded ziprasidone HCl 80 mg capsule 80 mg PO DAILY 30 days #30 caps 04/15/24 (Geodon) sertraline 100 mg tablet (Zoloft) 100 mg PO DAILY #30 tabs 05/17/24 albuterol sulfate 90 mcg/actuation 2 puff inhalation QID PRN 06/23/24 aerosol inhaler shortness of breath or wheezing #6.7 grams Allergies Allergy/AdvReac Type Severity Reaction Status Date / Time Penicillins Allergy Unknown Verified 06/23/24 14:35 Review of Systems 2 Const: Denies: fever(s) or chills Card: Denies: chest pain Resp: Denies: dyspnea GI: Denies: abdominal pain : Denies: dysuria, urinary frequency or urinary urgency Musc: Denies: neck pain or back pain Skin/Breast: Denies: rash PFSH ED 2 PFSH: Medical History Bipolar 2 disorder Depression with suicidal ideation Psychiatric care Family History Grandfather Heart attack Social History Smoking and tobacco/nicotine status: never used tobacco/nicotine Alcohol intake: never Substance/Drug Use: never Physical Exam 2 Const: GENERAL APPEARANCE: cooperative ORIENTATION/CONSCIOUSNESS: Yes awake, Yes oriented to person, Yes oriented to place and Yes oriented to time HENMT: COMMON NORMALS: normocephalic, atraumatic and hearing grossly normal bilaterally HEAD & SCALP: normocephalic and atraumatic Resp: COMMON NORMALS: normal respiratory effort, No retractions, No use of accessory muscles and clear to auscultation bilaterally AUSCULTATION: clear to auscultation bilaterally Cardio: COMMON NORMALS: regular rate, regular rhythm and No murmurs present (Cardio) RATE: regular rate RHYTHM: regular rhythm GI: COMMON NORMALS: Soft to palpation and No hepatosplenomegaly present A USCULTATION: Yes normoactive bowel sounds PALPATION: Yes Soft to palpation, No Tenderness to palpation present (GI), No Guarding due to palpation present (GI) and Yes No hepatosplenomegaly present Extremity: COMMON NORMALS: normal to inspection, capillary refill normal, no clubbing, cyanosis or edema, no calf tenderness and no pedal edema Neuro: SENSORIUM/ORIENTATION: Yes oriented to person, Yes oriented to place and Yes oriented to time Skin: COMMON NORMALS: no rashes or lesions noted GENERAL SKIN EXAM: no rashes or lesions noted Course 2 Vital Signs: Vital signs: Vital Signs Temperature 98.3 F 07/20/24 16:36 Pulse Rate 78 07/20/24 16:36 Respiratory Rate 16 07/20/24 16:36 Blood Pressure 111/77 07/20/24 16:36 Pulse Oximetry 99 07/20/24 16:36 Oxygen Delivery Me thod Room Air 07/20/24 06:00 MDM - Psych Medical Decision Making Discussed case with Dr. Torres. Will admit to MPU orders written and placed on 96-hour hold. Patient was briefly restrained and given Geodon and Ativan Medical Records I reviewed the patient's medical records. Lab Data I reviewed the patient's lab results. 07/18/24 11:22 07/18/24 11:22 No radiology studies performed this visit Discharge Plan Discharge Patient Disposition: Admitted As Inpatient Admit Provider: Phil Hernandez Clinical Impression: Suicidal ideation, Borderline personality disorder Condition: Stable Discharge Diet: Regular Discharge Activity: Resume usual activity Coding Level of Care Code ED Ground Operations Crew Member for Jessica Armenta
[2024-07-18 10:18] VITALS: BMI 25.0
[2024-07-18 10:45] VITALS: BP 179/115; PULSE 120; RESP 25; TEMP 36.8; O2SAT 100
--- NOTE | 2024-07-18 10:45 | ECG_ITS ---
[facility] Test Date: 2024-07-18 Pat Name: Alfred Burger Department: Room: 170 Gender: Male Dynamics Ax Consultant: : 1985 Requested By: Carlin Billingsley Order Number: [id number] Isac MD: Dexter Freire M.D. Measurements Intervals [place] Rate: 127 P: 26 MO: 162 QRS: -34 QRSD: 102 T: 31 QT: 322 QTc: 469 Interpretive Statements SINUS TACHYCARDIA LEFT AXIS DEVIATION [QRS AXIS < -30] LOW QRS VOLTAGE IN PRECORDIAL LEADS [QRS DEFLECTION < 1.0 mV IN CHEST LEADS] POSSIBLE RIGHT VENTRICULAR CONDUCTION DELAY [RSR (QR) IN V1/V2] POSSIBLE ANTERIOR MYOCARDIAL INFARCTION , OF INDETERMINATE AGE [30 ms Q WAVE IN V3/V4, OR R < 0.2 mV IN V4] INTERPRETATION BASED ON A DEFAULT AGE OF 40 YEARS No previous ECG available for comparison Electronically Signed On 07-19-2024 22:00:08 BREAKING MACHINE OPERATOR by Dexter Freire M.D. [email or web address]
[2024-07-18] MEDS: LORazepam 2 mg/mL INJ 1 mL IM ×2 (10:49→21:20)
[2024-07-18] MEDS: ziprasidone 20 mg/mL SDV IM (10:49)
[2024-07-18] MEDS: water for injection-sterile 10 ML 1.2 ML (10:50)
--- NOTE | 2024-07-18 11:23 | PC.NURSE ---
PATIENT BECAME AGGRESSIVE WITH PHYSICIAN IN REGARDS TO 96 HOUR HOLD. PATIENT ORDERED GEODON AND ATIVAN. PATIENT STATES I WILL NOT TAKE THE MEDS, BUT I'LL WALK. PATIENT CONTINUES TO FIGHT WITH PROVIDER AND SECURITY. PATIENT PLACED IN RESTRAINT BED WITH [facility] , DELILAH, AND HVAC SERVICE TECH DEPT PRESENTS. PATIENT PLACED IN RESTRAINTS AT 1040.
[2024-07-18 11:28] LABS: Basophils % 0.7 %; Eosinophils # 0.1 10^3/uL (0.0-0.8); Eosinophils % 3.1 %; Hematocrit 44.3 % (37-53); Lymphocytes # 1.3 10^3/uL (0.8-4.8); Lymphocytes % 29.6 %; Mean Corpuscular HGB Conc 34.5 g/dL (30-55); Mean Corpuscular Hemoglobin 31.4 pg (27-33); Mean Corpuscular Volume 90.8 fl (82-101); Mean Platelet Volume 8.8 fL (7.4-10.4); Monocytes # 0.3 10^3/uL (0.2-0.9); Monocytes % 6.5 %; Neutrophils # 2.66 10^3/uL (1.8-7.7); Neutrophils % 59.7 %; Nucleated Red Blood Cells % 0 %; Platelet Count 221 10^3/cmm (157-399); Red Blood Count 4.88 10^6/uL (3.85-5.65); Red Cell Distribution Width 12.4 % (12.1-15.1); White Blood Count 4.46 10^3/uL (3.29-11.43)
--- NOTE | 2024-07-18 11:38 | PC.NURSE ---
96 hr rights reviewed with patient @1045 with assistance of JOYCELYN Hernandez. Education attempted to be reviewed with patient, but pt screamed Fuck you and your paperwork . Pt copy left with patient @bedside. Around 1115, HS went to assess why pt was screaming at PSA. Once HS entered the room, HS was told that his phone had been ringing nonstop by pt's trying to figure out where he was. HS explained to pt that if he could remain calm and cooperate with staff and show there is not a threat to himself or to staff, he would then be let out of restraints. HS allowed pt to talk to briefly over speaker phone while still in restraint bed. Once completion of phone call, HS and security was able to start taking patient out of restraint bed. Pt then was calm enough to allow HS to draw needed labs. And then verbalized understanding to the [address]
[2024-07-18 11:52] LABS: Alanine Aminotransferase 12 U/L (0-41); Albumin Level 4.1 g/dL (3.5-5.2); Alkaline Phosphatase 84 U/L (40-130); Anion Gap 15.7 (5-19); Aspartate Amino Transferase 13 U/L (0-40); Blood Urea Nitrogen 12 mg/dL (6-20); Carbon Dioxide 21 mmol/L (22-29); Chloride 104 mmol/L (98-107); Creatinine Clr Calc Pharmacy 99.2011; Globulin 2.4 g/dL (1.3-4.6); Glomerular Filtration Rate 68.5 mL/min (90-130); Glucose 117 mg/dL (65-115); Osmolality Calculated 285 mOsm/kg (285-295); Potassium 3.7 mmol/L (3.5-5.1); Salicylate 0.9 mg/dL (3-10); Sodium 137 mmol/L (136-145); Total Bilirubin 0.3 mg/dL (0.15-1.2); Total Protein 6.5 g/dL (6.6-8.7)
[2024-07-18 11:54] LABS: Acetaminophen < 5.0 ug/mL (10-30); Alcohol Level < 10 mg/dL (0-10)
[2024-07-18 13:09] VITALS: BP 156/91; PULSE 68; O2SAT 98
[2024-07-18 13:10] VITALS: BP 156/91; PULSE 68; O2SAT 98
[2024-07-18 13:23] VITALS: BP 79/58; PULSE 79; RESP 16; TEMP 36.4; O2SAT 99
[2024-07-18 14:00] VITALS: BP 79/58; PULSE 79; RESP 16; TEMP 36.9; O2SAT 99
--- NOTE | 2024-07-18 16:03 | PC.NURSE ---
PT WAS REPORTED TO HAVE BEEN SEEN AT [facility] AND MADE SUICIDAL STATEMENTS. PT REPORTEDLY BECAME AGITATED AND LEFT [facility] AT THIS TIME WORKERS PLACED PT ON A 96 HOUR HOLD. PT ARRIVED TO THE EMERGENCY DEPARTMENT AGITATED AND UNWILLING TO BE ADMITTED. PT REQUIRED CHEMICAL AND PHYSICAL RESTRAINTS WHILE IN THE EMERGENCY DEPARTMENT. UPON ADMIT TO THE NPU PT IS EVASIVE AND MINIMAL WITH ASSESSMENT QUESTIONS. PT WAS INITIALLY RESISTIVE TO QUESTIONING STATING I DON'T NEED TO BE HERE SO I DO NOT NEED TO ANSWER YOUR QUESTIONS. THIS NURSE EXPLAINED HOW BEING COOPERATIVE WITH QUESTIONING WOULD HAVE A POSITIVE IMPACT ON HIS DISCHARGE DISPOSITION. PT WAS COOPERATIVE AFTER THIS. PT CURRENT NEEDS ARE MET AT THIS TIME.
[2024-07-18 17:49] LABS: Amphetamines Screen Urine Negative (Negative); Barbiturates Screen Urine Negative (Negative); Benzodiazepines Screen Urine Positive (Negative); Cocaine Screen Urine Negative (Negative); Opiate Screen Urine Negative (Negative); PCP Screen Urine Negative (Negative); THC Screen Urine Negative (Negative)
[2024-07-18] MEDS: trazodone 50 mg Tablet PO (20:09)
[2024-07-18] MEDS: haloperidol inj 5 mg/mL INJ 1 mL IM (21:20)
[2024-07-18] MEDS: diphenhydrAMINE 50 mg/mL SDV 1mL IM (21:20)
[2024-07-18 21:44] VITALS: BP 107/75; PULSE 70; RESP 18; TEMP 36.8; O2SAT 98
--- NOTE | 2024-07-18 22:00 | PC.NURSE ---
BEHAVIORAL During this nurse's shift assessment, pt voiced that he was upset that the doctor had not seen him today. This nurse informed the pt that the doctor has 24 hours to see him so he would likely talk to the doctor sometime tomorrow morning. Awhile later while talking to other pts, this nurse heard the pt yelling at the nurses station. When asked why the pt was upset he stated everyone here has lied to me, I was told i would see the doctor tonight and now i'm not on the schedule. This nurse and ROAD GRADER Indira took pt back to his room and attempted to verbally deescalate the pt. Pt continued to yell at this nurse and stated this is bullshit i shouldn't even be here. I don't want that doctor fucking with my medications. Pt then stated that he does not need to be evaluated and that he can just go to his scheduled therapy appointment on the . This nurse explained to the pt that since he is here the doctor needs to evaluate him to make sure he is not a harm to himself or others. Pt stated again that is bullshit i don't need to be evaluated i need to go home. This nurse stated that the pt just needs to get through tonight and we will see what the doctor says tomorrow. Pt replied If i don't get released tomorrow we are going to have a huge problem. At this time this nurse asked the pt if he would like something to help him calm down and he replied i need something to help me sleep, this shit is stressing me out. Ativan 2mg and Haldol 5mg was administered in the pts right deltoid by FREDDIE Kellogg and Benadryl 50mg was administered in the pts left deltoid by this RN at 2119. Pt tolerated medications well and asked this nurse to turn the light off on her way out. This nurse rounded on pt at 2200 and he was resting in bed quietly with eyes closed. Behavioral monitoring continues
[2024-07-19 06:00] VITALS: RESP 18
--- NOTE | 2024-07-19 06:33 | PC.NURSE ---
Did not wake patient for vitals because behaviors nurse approved.
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
[2024-07-19 14:00] VITALS: BP 92/60; PULSE 71; RESP 18; TEMP 36.6; O2SAT 94
[2024-07-19 20:36] VITALS: BP 118/82; PULSE 84; RESP 16; TEMP 37.2; O2SAT 95
[2024-07-19] MEDS: hyDROXYzine 25 mg Capsule 50 MG PO (20:50)
[2024-07-19] MEDS: trazodone 50 mg Tablet PO ×2 (20:51→23:16)
[2024-07-19] MEDS: OLANZapine 5 mg ODT PO (23:16)
[2024-07-20 06:00] VITALS: BP 92/61; PULSE 61; RESP 16; O2SAT 95
[2024-07-20 14:00] VITALS: BP 111/77; PULSE 78; RESP 16; TEMP 36.8; O2SAT 99
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
[2024-07-20 16:36] VITALS: BP 111/77; PULSE 78; RESP 16; TEMP 36.8; O2SAT 99
--- NOTE | 2024-07-20 17:25 | DCPLANNER ---
Imm was printed and right explained to pt and copy placed in file.
== END 2024-07-20 17:00 | disposition home or self-care (01) | DRG 885 ==
LOC: ER 10:29 → NP 10:49
PROVIDERS: Physician Assistant; Admitting Provider Internal Medicine; Emergency Provider Family Medicine; PCP Nurse Practitioner Family; Visit Provider Psychiatry & Neurology Psychiatry
DX: F25.0 Schizoaffective disorder, bipolar type (principal); F60.3 Borderline personality disorder; F41.1 Generalized anxiety disorder; F40.10 Social phobia, unspecified; Z91.51 Personal history of suicidal behavior; Z81.8 Family history of other mental and behavioral disorders
CPT/HCPCS: 80053; 80306; 80307; 85025; 93005; 96372; 97150; 97165; 99285; J1200; J1630; J2060; J3486

== ENCOUNTER → 2024-08-23 15:04 | Outpatient (BNVA) | payer OTHER, SELFPAY | PROVIDERS: PCP Nurse Practitioner Family; Visit Provider Psychiatry & Neurology Psychiatry | DX: F60.3 Borderline personality disorder (principal); F31.81 Bipolar II disorder; Z79.899 Other long term (current) drug therapy | CPT/HCPCS: 80053; 80178; 84443 ==